=== PATIENT | male | born 1960 | race Caucasian/White ===

== ENCOUNTER 2017-12-19 12:44 | Observation (INO) ==
[2017-12-19] MEDS ORDERED: Naloxone 0.4 MG/ML INJ IVP PRN (17:38)
[2017-12-19] MEDS ORDERED: Ondansetron 4 MG/2 ML VIAL IVP PRN (17:38)
[2017-12-19] MEDS ORDERED: *HR* HYDROcodone/Acet 5/325 mg TABLET PO PRN (17:38)
[2017-12-19] MEDS ORDERED: Acetaminophen 325 MG TABLET PO PRN (17:38)
[2017-12-19] MEDS ORDERED: Nitroglycerin 0.4 MG TAB.SUBL SL PRN (18:08)
--- NOTE | 2017-12-19 18:11 | Internal Med History&Physical ---
Date of Encounter: 12/19/17 Time of Encounter: 18:09 Internal Medicine - H&P: HPI Chief complaint: Chest pain Admitted From: Emergency Dept Plans for Post Hospital Care: Home History of present illness: Mr. Berry is a 56 year old male with a known past medical history of hypertension, hyperlipidemia, ischemic cardiomyopathy with LVEF 35%, CAD with status post cardiac stents to LAD in July 2017, history of smoking smoking patient presented to [facility] this morning complaining about chest pain located at sub sternal as well as epigastric region radiating to bilateral chest wall regions started this morning at 3 AM. He also felt tingling in both hands which improved now. His chest pain more like a sharp type of pain it has 7 out of 10 in severity. He denied of any chest discomfort chest pain now. Patient was transferred to our hospital for further evaluation. He does have significant family history with the CAD, father had HI when he was 49, Mother had HI when she was in 70's Past Med Surg Social Fam HX - Past Medical History Medical history: arthritis, coronary artery disease, hyperlipidemia, myocardial infarction Psychiatric history: no psych history - Past Surgical History Surgical History: no surgical history - Social History Smoking Status: Former smoker Smokeless Tobacco Status: No Alcohol use: none Drug use: none - Family History Father Living Status: Hx Family Cardiac Disorders: Yes (both parents and both grandparents) Hx Family Respiratory Disorders: No Hx Family Cancer: Yes Hx Family GI Disorders: No Hx Family Endocrine Disorder: Yes (mother diabetes) Hx Family Neuromuscular Disorders: No Hx Family Neurologic Disorders: Yes (mother-stroke) Hx Family HEENT Disorders: Yes (mother, father- glaucoma) Hx Family Autoimmune Disorders: No Internal Medicine - H&P: Meds Aspirin 81 mg PO DAILY 08/14/17 [History] Atorvastatin 40 mg PO DAILY 08/14/17 [History] Brilinta 90 mg PO BID 08/14/17 [History] Lisinopril 5 mg PO DAILY 08/14/17 [History] Nitroglycerin 0.4 mg SL PRN PRN 08/14/17 [History] Isosorbide Mononitrate 30 mg PO DAILY 09/14/17 [History] Omeprazole [PriLOSEC] 12/19/17 [History] Ranitidine HCl [Acid Personnel Assistant] 75 mg PO 12/19/17 [History] 3 Allergy/AdvReac Type Severity Reaction Status Date / Time No Known Allergies Allergy Verified 12/19/17 17:14 All Systems PM: A 10-system review of systems was performed and is negative for pertinent findings except as documented above in the HPI. Review of systems: All the systems are reviewed everything is benign except the systems and symptoms I mentioned in the history of present illness - Constitutional Vitals: Temp Pulse Resp BP Pulse Ox 97.6 F 50 17 119/68 94 12/19/17 17:08 12/19/17 17:08 12/19/17 17:08 12/19/17 17:08 12/19/17 17:08 General appearance: Present: cooperative, A&O X 3, no acute distress, answers questions appropriately Exam: see below - Head Head exam: Present: atraumatic, normal inspection - Neck Neck exam general surgery: Present: supple - Respiratory Respiratory exam: Present: decreased breath sounds. Absent: rales, respiratory distress, rhonchi, wheezes - Cardiovascular Cardiovascular exam: Present: RRR, +S1, +S2. Absent: tachycardia - GI/Abdominal GI/Abdominal exam: Present: normal bowel sounds, soft. Absent: rebound, rigid, tenderness - Extremities Exam Extremities exam: Absent: calf tenderness, pedal edema, tenderness - Back Exam Back exam: Absent: CVA tenderness (L), CVA tenderness (R) - Neurological Exam Neurological exam: Present: alert, oriented X3 - Psychiatric Psychiatric exam: Present: normal affect, normal mood - Skin Skin exam: Absent: rash - Assessment and plan (1) Chest pain Current Visit: Yes Status: Acute Assessment and plan: Will admit the pt into [facility] for observation Will place pt on pvc monitor check serial troponin so far negative troponin from [facility] EKG reviewed sinus bradycardia wiht HR54, T wave inversion in shai lateral leads noticed. No ST changes noticed continue patient on aspirin, Brilinta, BB and ACEI and Imdur Will check FLP in AM Will get stress test in AM since pt is high risk for ACS Qualifiers: Chest pain type: unspecified Qualified Code(s): R07.9 - Chest pain, unspecified (2) Ischemic cardiomyopathy Current Visit: Yes Status: Chronic Assessment and plan: Reviewed a 2-D Echo from July 2017 showed LVEF 35 % will do a follow-up echo in the morning (3) CAD (coronary artery disease) Current Visit: Yes Status: Acute Assessment and plan: Had a stent placed to LAD on July 2017 at [facility] resumed all home medications Qualifiers: Coronary Disease-Associated Artery/Lesion type: [place] artery [place] vs. transplanted heart: [place] heart Associated angina: without angina Qualified Code(s): I25.10 - Atherosclerotic heart disease of [place] coronary artery without angina pectoris (4) Hypertension Current Visit: Yes Status: Acute Assessment and plan: Stable with current home medications Qualifiers: Hypertension type: essential hypertension Qualified Code(s): I10 - Essential (primary) hypertension (5) Hyperlipidemia Current Visit: Yes Status: Acute Assessment and plan: Resumed home medications Qualifiers: Hyperlipidemia type: unspecified Qualified Code(s): E78.5 - Hyperlipidemia , unspecified - Time Spent With Patient Total time spent is greater than 50% in coordination of care (as documented) at patient's floor/unit and/or counseling patient:
[2017-12-19] MEDS: *HR* Ticagrelor 90 MG TABLET PO SCH (21:03)
[2017-12-20 00:54] LABS: Basophils % 0.5 %; Eosinophils # 0.1 K/mcL (0.0-0.6); Eosinophils % 1.5 %; Hematocrit 41.2 % (37.5-50.1); Hemoglobin 14.4 g/dL (12.9-16.9); Immature Granulocytes % 0.3 % (0-4); Mean Corpuscular Hemoglobin 32.2 pg (28.0-33.3); Mean Corpuscular Volume 92.2 fL (83.0-100.0); Mean Platelet Volume 10.5 fL (9.4-12.4); Monocytes # 0.7 K/mcL (0.0-1.3); Monocytes % 11.3 %; Neutrophils # 3.2 K/mcL (1.6-8.9); Platelet Count 195 K/mcL (140-400); Red Blood Count 4.47 M/mcL (4.19-5.50); Red Cell Distribution Width 13.8 % (11.5-14.5); Segmented Neutrophils % 53.4 %
[2017-12-20 01:15] LABS: BUN/Creatinine Ratio 19 (6-26); Blood Urea Nitrogen 15 mg/dL (6-20); Calcium 8.6 mg/dL (8.6-10.3); Carbon Dioxide 24 mEq/L (23-29); Chloride 112 mEq/L (98-107); Chol/HDL Ratio 3.2 (0-4.9); Cholesterol 122 mg/dL (< 200); Glucose 123 mg/dL (70-105); HDL Cholesterol 38 mg/dL (40-59); LDL Cholesterol,Calculated 36 mg/dL (0-99); Osmolality,Calculated 298 (280-300); Potassium 3.5 mEq/L (3.5-5.1); Sodium 143 mEq/L (136-145); Triglycerides 239 mg/dL (< 150); eGFR For Non-African Americans > 60 (> 60)
[2017-12-20] MEDS ORDERED: Regadenoson 0.4 MG/5 ML SYRINGE IVP ONE (07:26)
[2017-12-20] MEDS: *HR* Ticagrelor 90 MG TABLET PO SCH (08:54)
[2017-12-20] MEDS ORDERED: Aspirin 81 MG TAB.CHEW PO SCH (09:00)
[2017-12-20] MEDS ORDERED: Isosorbide MONOnitrate (24 HR) 30 MG TAB.ER.24H PO SCH (09:00)
[2017-12-20 11:29] VITALS: BP 117/71
--- NOTE | 2017-12-20 12:30 | Discharge Summary ---
<MaxxLorWarren C - Last Filed: 12/20/17 13:43> - NOTES TO OUTPATIENT PROVIDER Notes to Outpatient Provider: Patient presented for chest pain and was admitted for cardiac workup. Troponin was negative, stress test revealed a large reversible area of nonperfusion representing scar likely from previous MN. LVEF 45%. Cardiology is following and he is scheduled for outpatient follow-up we will hold off on echocardiogram until he sees cardiology outpatient. We will discharge on home medications. Orders not resulted at time of discharge: Pending orders 12/19/17 18:07 NM lisa perf SPECT multi [NM] Routine Date of Encounter: 12/20/17 Time of Encounter: 12:28 - Discharge Diagnosis (1) Chest pain Priority: Primary Status: Acute Assessment and Plan: Patient was admitted on telemetry Serial troponins were negative EKG revealed sinus bradyacrdia (54) with t wave inversion, no ST changes Aspirin, Brilinta, beta roberth, ACEI and Imdur given Stress test showed large area of irreversible non-perfusion likely scar secondary to previous MN, no areas of ischemia noted Cardiology has been following and they already have follow-up scheduled outpatient The plan to came a echocardiogram and to monitor at that time No further intervention is recommended in the hospital at this point Patient is in a stable condition and we will discharge on home medications Qualifiers: Chest pain type: unspecified Qualified Code(s): R07.9 - Chest pain, unspecified (2) CAD (coronary artery disease) Priority: Secondary Status: Acute Assessment and Plan: Had a stent placed to LAD on July 2017 at [facility] resumed all home medications Qualifiers: Coronary Disease-Associated Artery/Lesion type: [place] artery [place] vs. transplanted heart: [place] heart Associated angina: without angina Qualified Code(s): I25.10 - Atherosclerotic heart disease of [place] coronary artery without angina pectoris (3) Hypertension Priority: Secondary Status: Acute Assessment and Plan: Stable for discharge with current home medications Qualifiers: Hypertension type: essential hypertension Qualified Code(s): I10 - Essential (primary) hypertension (4) Hyperlipidemia Priority: Secondary Status: Acute Assessment and Plan: Fasting lipid panel here showed hypertriglyceridemia 239, cholesterol in normal range Resumed home medications Qualifiers: Hyperlipidemia type: unspecified Qualified Code(s): E78.5 - Hyperlipidemia , unspecified (5) Ischemic cardiomyopathy Priority: Secondary Status: Chronic Assessment and Plan: Reviewed a 2-D Echo from July 2017 showed LVEF 35 % LVEF on stress test 45% Cardiology will do repeat echo at follow up Hospital course: Mr. Berry is a 56 year old male with a known past medical history of hypertension, hyperlipidemia, ischemic cardiomyopathy with LVEF 35%, CAD with status post cardiac stents to LAD in July 2017, history of smoking smoking patient presented to [facility] yesterday morning complaining about chest pain located at sub sternal as well as epigastric region radiating to bilateral chest wall regions started yesterday morning at 3 AM. He also felt tingling in both hands which improved. His chest pain more like a sharp type of pain it has 7 out of 10 in severity. He denied of any chest discomfort chest pain at admission. Patient was transferred to our hospital for further evaluation. Troponins trended here were negative, EKG showed bradycardia and T-wave inversion otherwise no ST changes. Stress test showed large area of reversible nonperfusion likely scarring secondary to previous MN, no areas of ischemia found. Patient was asymptomatic after admission with stable labs and vitals. Cardiology following and set up for outpatient follow-up with echocardiogram and Holter monitor, we will discharge on home medications. Discharge discussed with: patient, family - Time Spent with Patient Total time spent providing and/or coordinating discharge services: - Discharge Medications Home Medications: Aspirin [Adult Aspirin] 81 mg PO DAILY 12/20/17 [History] Atorvastatin [Lipitor] 40 mg PO HS 12/20/17 [History] Isosorbide MONOnitrate (24 HR) [Imdur] 30 mg PO DAILY 12/20/17 [History] Lisinopril [Zestril] 5 mg PO DAILY 12/20/17 [History] Nitroglycerin [Nitrostat] 0.4 mg SL Q5M PRN 12/20/17 [History] Omeprazole [PriLOSEC] 20 mg PO DAILY 12/20/17 [History] Ranitidine HCl [Acid Flatwork Finisher Hand] 150 mg PO HS 12/20/17 [History] Ticagrelor [Brilinta] 90 mg PO BID 12/20/17 [History] Allergies/Adverse Reactions: 3 Allergy/AdvReac Type Severity Reaction Status Date / Time No Known Allergies Allergy Verified 12/19/17 17:14 Date of admission: 12/19/17 16:38 Primary care physician: Shawanda Michele Consults: 12/19/17 17:14 Consult to Chronometer Assembler And Adjuster [CONS] Routine Reason for SW Consult: POA paperwork Discharging clinician: Warren Lilly - Constitutional Vitals: Temp Pulse Resp BP Pulse Ox 97.2 F L 50 18 117/71 93 12/20/17 11:26 12/20/17 11:26 12/20/17 11:26 12/20/17 11:26 12/20/17 11:26 General appearance: Present: cooperative, A&O X 3, no acute distress, answers questions appropriately Exam: Patient in no acute distress, alert and oriented 3 Cranial nerves II through XII intact Heart in regular rate and rhythm, no murmur or gallop Lungs clear to auscultation bilaterally Abdomen soft and nontender Legs nonedematous Skin warm and dry - Patient Status Disposition: Home, Self-Care Condition: Good Functional capacity at discharge: independent ambulation Overall status at discharge: patient is back to baseline - Discharge Instructions Instructions: Chest Pain (DC) Follow Up With: Shawanda Michele [Primary Care Provider] - 12/26/17 9:30 am - Diet and Activity Activity: resume usual activities as tolerated Diet: low fat, low cholesterol <Kwaku Benavidez - Last Filed: 12/20/17 16:22> Orders not resulted at time of discharge: Pending orders 12/19/17 18:07 NM lisa perf SPECT multi [NM] Routine Date of Encounter: 12/20/17 - Discharge Diagnosis (1) Chest pain Status: Acute Qualifiers: Chest pain type: unspecified Qualified Code(s): R07.9 - Chest pain, unspecified (2) CAD (coronary artery disease) Status: Acute Qualifiers: Coronary Disease-Associated Artery/Lesion type: [place] artery [place] vs. transplanted heart: [place] heart Associated angina: without angina Qualified Code(s): I25.10 - Atherosclerotic heart disease of [place] coronary artery without angina pectoris (3) Hypertension Status: Acute Qualifiers: Hypertension type: essential hypertension Qualified Code(s): I10 - Essential (primary) hypertension (4) Hyperlipidemia Status: Acute Qualifiers: Hyperlipidemia type: unspecified Qualified Code(s): E78.5 - Hyperlipidemia , unspecified (5) Ischemic cardiomyopathy Status: Chronic Hospital course: Mr. Berry is a 56 year old male - Time Spent with Patient Total time spent providing and/or coordinating discharge services: Date of admission: 12/19/17 16:38 Primary care physician: Shawanda Michele Consults: 12/19/17 17:14 Consult to Chronometer Assembler And Adjuster [CONS] Routine Reason for SW Consult: POA paperwork - Constitutional Vitals: Temp Pulse Resp BP Pulse Ox 97.2 F L 50 18 117/71 93 12/20/17 11:26 12/20/17 11:26 12/20/17 11:26 12/20/17 11:26 12/20/17 11:26 - Attending Attestation I examined this patient and my medical decision-making was reviewed with the Resident Physician Dr. Lilly. I agree with the documented findings, disposition and treatment plan as described except to the extent set forth below. Mr. Berry is a 56 year old male with a known past medical history of hypertension, hyperlipidemia, ischemic cardiomyopathy with LVEF 35%, CAD with status post cardiac stents to LAD in July 2017, history of smoking smoking patient presented to [facility] complaining about chest pain located at sub sternal as well as epigastric region radiating to bilateral chest wall region. He was admitted here and placed him on tele. His serial trop were negative. His stress test came back as negative. Medically stable to d/c home today.
== END 2017-12-20 14:42 | disposition home or self-care (01) ==
LOC: 3BNU
PROVIDERS: ADMIT Internal Medicine; ATTEND Internal Medicine

== ENCOUNTER 2018-09-20 14:19 | Observation (INO) ==
[2018-09-20] MEDS ORDERED: *HR* Morphine 2 MG/ML SYRINGE IVP ONE (14:41)
--- NOTE | 2018-09-20 14:41 | Emergency Department Note ---
Disposition Clinical Impression: ACS (acute coronary syndrome) Disposition: Admitted As Inpatient Condition: Fair Referrals: Melanie Barajas MD [Primary Care Provider] - Forms: ED Satisfaction Letter Time of Disposition: 16:59 General Adult HPI - General Chief complaint: ED Chest Pain Stated complaint: Chest Pain Time Seen by Provider: 09/20/18 14:25 Source: patient - History of Present Illness Pain Scale: 8 - Related Data Home Medications Medication Instructions Recorded Confirmed Aspirin [Adult Aspirin] 81 mg PO DAILY 12/20/17 12/20/17 Atorvastatin [Lipitor] 40 mg PO HS 12/20/17 12/20/17 Isosorbide MONOnitrate (24 HR) 30 mg PO DAILY 12/20/17 12/20/17 [Imdur] Lisinopril [Zestril] 5 mg PO DAILY 12/20/17 12/20/17 Nitroglycerin [Nitrostat] 0.4 mg SL Q5M PRN 12/20/17 12/20/17 Omeprazole [PriLOSEC] 20 mg PO DAILY 12/20/17 12/20/17 Ranitidine HCl [Acid Access Services Representative] 150 mg PO HS 12/20/17 12/20/17 Ticagrelor [Brilinta] 90 mg PO BID 12/20/17 12/20/17 Allergies Allergy/AdvReac Type Severity Reaction Status Date / Time No Known Allergies Allergy Verified 04/08/18 16:21 Past Medical History - Past Medical History Medical history: Reports: arthritis, COPD, coronary artery disease, GERD, hyperlipidemia, myocardial infarction Surgical history: Reports: angioplasty/stent, orthopedic, other Psychiatric history: Reports: no psych history - Social History Smoking Status: Former smoker Smokeless Tobacco Status: No Alcohol use: Reports: none Drug use: Reports: none Physical Exam - General General appearance: alert Course Vital Signs Temperature 98.3 F 09/20/18 14:25 Pulse Rate 59 09/20/18 14:25 Respiratory Rate 28 09/20/18 14:25 Blood Pressure 115/80 09/20/18 14:25 O2 Sat by Pulse Oximetry 96 09/20/18 14:25 Temperature 98.3 F 09/20/18 14:25 Pulse Rate 59 09/20/18 14:25 Respiratory Rate 28 09/20/18 14:25 Blood Pressure 115/80 09/20/18 14:25 O2 Sat by Pulse Oximetry 96 09/20/18 14:25 Oxygen Delivery Oxygen Delivery Room Air Medical Decision Making - Medical Records Medical records reviewed: Yes I reviewed the patient's medical records. - Lab Data Lab results reviewed: Yes I reviewed the patient's lab results. Result diagrams: 09/20/18 14:50 09/20/18 14:50 Lab Results 09/20/18 09/20/18 Range/Units 14:50 14:50 WBC 7.3 (4.3-11.1) K/mcL RBC 4.86 (4.19-5.50) M/mcL Hgb 15.4 (12.9-16.9) g/dL Hct 44.5 (37.5-50.1) % MCV 91.6 (83.0-100.0) fL MCH 31.7 (28.0-33.3) pg MCHC 34.6 (31.6-35.5) g/dL RDW 13.1 (11.5-14.5) % Plt Count 227 (140-400) K/mcL MPV 10.8 (9.4-12.4) fL Immature Gran % 0.3 (0-4) % Seg Neutrophils % 54.8 % Lymphocytes % 33.5 % Monocytes % 10.2 % Eosinophils % 0.7 % Basophils % 0.5 % Neutrophils # 4.0 (1.6-8.9) K/mcL Lymphocytes # 2.4 (0.6-4.6) K/mcL Monocytes # 0.7 (0.0-1.3) K/mcL Eosinophils # 0.1 (0.0-0.6) K/mcL Basophils # 0.0 (0.0-0.2) K/mcL Sodium 140 (136-145) mEq/L Potassium 3.8 (3.5-5.1) mEq/L Chloride 111 H (98-107) mEq/L Carbon Dioxide 19 L (23-29) mEq/L BUN 14 (6-20) mg/dL Creatinine 0.76 (0.70-1.30) mg/dL Est GFR ( Amer) > 60 (> 60) Est GFR (Non-Af Amer) > 60 (> 60) BUN/Creatinine Ratio 18 (6-26) Glucose 93 (70-105) mg/dL Calculated Osmolality 290 (280-300) Calcium 9.2 (8.6-10.3) mg/dL Troponin I < 0.03 (< 0.04) ng/mL - Radiology Data Radiology results reviewed: Yes I reviewed the patient's radiology results. Attestation Statement - Attestation Attestation: I saw and evaluated the patient and and reviewed the resident's note/PA note/BOGGER OPERATOR note, and I agree with the findings and plan. I personally supervised and was present for the king/critical portions of any procedures. The medical decision- making was reviewed with the HEAD ANIMAL KEEPER/PA/Advanced Practice Nurse/Resident Physician. I agree with the documented findings, disposition and treatment plan as described except to the extent set forth below. I did see the patient immediately upon arrival and also spoke with the cardiolo gy nurse practitioner who brought the patient over to me and I did review the patient's EKG from cardiology as well as our EKG from here and they are essentially unchanged. Our EKG here shows sinus bradycardia with a rate of [address] elevation anteriorly which appears almost identical to the EKG which was done at 2:03 PM today at cardiology. Also according to Dr. Causey there is no change from the beginning to the end of the stress test. The patient states his pain feels similar to when he had his heart attack in July 2017. Labs including troponin testing are ordered, chest x-ray. Patient will be watched closely and we will coordinate care with cardiology. 1441 I did go back and check on the patient. Pain is improved and is now 5/10. X- ray does not show acute abnormality. Troponin test is pending. 1519 Initial troponin is negative. Additional testing is necessary due to short duration of the patient's pain. He is pain-free now. Is admitted to the [facility]. This was discussed with cardiology. The hospitalist has accepted the patient for admission 1700
--- NOTE | 2018-09-20 14:46 | Emergency Department Note ---
Disposition Clinical Impression: ACS (acute coronary syndrome) Chest pain Qualifiers: Chest pain type: unspecified Qualified Code(s): R07.9 - Chest pain, unspecified Disposition: Admitted As Inpatient Condition: Fair Instructions: Chest Pain (ED) Referrals: Melanie Barajas MD [Primary Care Provider] - Forms: ED Satisfaction Letter Time of Disposition: 16:30 General Adult HPI - General Chief complaint: ED Chest Pain Stated complaint: Chest Pain Time Seen by Provider: 09/20/18 14:25 Source: patient - History of Present Illness HPI Narrative: Mr. Lucio is a 57-year-old male with past medical history of previous OK with 1 stent in 2018 on aspirin and Plavix who was presented to the ED after chest pain during elective exercise stress test. He received 2 sublingual nitroglycerin without any remedy of his chest pain. He had an EKG today upon presentation in EKG looks unchanged from previous EKG. He reports that the c hest pain seems similar to his previous chest pain he had when he had an OK. It is described as stabbing pain around his bilateral rib cage does not radiate to his back. The pain is not reproducible in severity described as 7/10. He reports that usually he works out daily on the treadmill and walks at a fast paced for about 15 minutes and also uses stationary bike and never has had chest pain like this since his OK. He denies any fever, chills, nausea, emesis, shortness of breath, abdominal pain, chest wall tenderness. Pain Scale: 8 - Related Data Home Medications Medication Instructions Recorded Confirmed Aspirin [Adult Aspirin] 81 mg PO DAILY 12/20/17 09/20/18 Atorvastatin [Lipitor] 40 mg PO HS 12/20/17 09/20/18 Isosorbide MONOnitrate (24 HR) 15 mg PO DAILY 12/20/17 09/20/18 [Imdur] Lisinopril [Zestril] 2.5 mg PO DAILY 12/20/17 09/20/18 Nitroglycerin [Nitrostat] 0.4 mg SL Q5M PRN 12/20/17 09/20/18 Ticagrelor [Brilinta] 90 mg PO BID 12/20/17 09/20/18 Allergies Allergy/AdvReac Type Severity Reaction Status Date / Time No Known Allergies Allergy Verified 04/08/18 16:21 Constitutional: Denies: fever, weakness Eyes: Denies: eye pain, vision change ENT ED: Denies: ear pain, congestion, dysphagia Cardiovascular: Reports: chest pain. Denies: palpitations, dyspnea on exertion, orthopnea, edema, syncope Respiratory: Denies: cough, dyspnea, wheezes Gastrointestinal: Denies: abdominal pain, nausea, vomiting Musculoskeletal: Denies: back pain Integumentary: Denies: rash, abrasion, lesions Neurological: Denies: headache, weakness, numbness, paresthesias Past Medical History - Past Medical History Medical history: Reports: arthritis, COPD, coronary artery disease, GERD, hype rlipidemia, myocardial infarction Surgical history: Reports: angioplasty/stent, orthopedic, other Psychiatric history: Reports: no psych history - Social History Smoking Status: Former smoker Smokeless Tobacco Status: No Alcohol use: Reports: none Drug use: Reports: none Physical Exam At presentation appeared very uncomfortable is complaining of severe pain around his bilateral lower chest. He received 4 mg of IV morphine soon after he was resting comfortably in bed and was taking a nap and reported his pain had resolved. - General General appearance: alert - Head Head exam: atraumatic, normocephalic - Eye Eye exam: Present: normal appearance, EOMI. Absent: scleral icterus, conjun ctival injection - ENT ENT exam: normal exam, normal oropharynx, mucous membranes moist - Neck Neck exam: Present: normal inspection, full ROM, trachea midline - Chest Chest inspection: Present: normal inspection. Absent: symmetric chest wall rise, tenderness - Respiratory Respiratory exam: Present: normal lung sounds bilaterally. Absent: respiratory distress, wheezes, accessory muscle use - Cardiovascular Cardiovascular exam: Present: regular rate, normal rhythm, +S1, +S2 - Abdominal Exam Abdominal exam: Present: soft, Non-Tender, normal bowel sounds. Absent: distention, guarding - Extremities Exam Extremities exam: Present: normal inspection. Absent: tenderness, pedal edema - Back Exam Back exam: Present: normal inspection. Absent: tenderness - Neurological Exam Neurological exam: Present: alert, oriented X3 - Psychiatric Psychiatric exam: Present: normal mood, agitated - Skin Skin exam: Present: warm, dry, intact Course - Reevaluation(s) Reevaluation #1: Reexamined Mr. Lucio. He was resting in bed comfortably and taking a nap. He reports his chest pain has completely resolved at this time. Time: 15:41 Reevaluation #2: Spoke with the admitting hospitalist and patient will be admitted to hospital. Additionally spoke with cardiology and they said they will monitor the patient during his stay in the hospital and make any further recommendations. Time: 16:00 Vital Signs Temperature 98.3 F 09/20/18 14:25 Pulse Rate 59 09/20/18 14:25 Respiratory Rate 28 09/20/18 14:25 Blood Pressure 115/80 09/20/18 14:25 O2 Sat by Pulse Oximetry 96 09/20/18 14:25 Temperature 98.3 F 09/20/18 14:25 Pulse Rate 67 09/20/18 17:19 Respiratory Rate 16 09/20/18 17:19 Blood Pressure 124/71 09/20/18 17:19 O2 Sat by Pulse Oximetry 94 09/20/18 17:19 Oxygen Delivery Oxygen Delivery Room Air Medical Decision Making - Lab Data Result diagrams: 09/20/18 14:50 09/20/18 14:50 Lab Results 09/20/18 09/20/18 Range/Units 14:50 14:50 WBC 7.3 (4.3-11.1) K/mcL RBC 4.86 (4.19-5.50) M/mcL Hgb 15.4 (12.9-16.9) g/dL Hct 44.5 (37.5-50.1) % MCV 91.6 (83.0-100.0) fL MCH 31.7 (28.0-33.3) pg MCHC 34.6 (31.6-35.5) g/dL RDW 13.1 (11.5-14.5) % Plt Count 227 (140-400) K/mcL MPV 10.8 (9.4-12.4) fL Immature Gran % 0.3 (0-4) % Seg Neutrophils % 54.8 % Lymphocytes % 33.5 % Monocytes % 10.2 % Eosinophils % 0.7 % Basophils % 0.5 % Neutrophils # 4.0 (1.6-8.9) K/mcL Lymphocytes # 2.4 (0.6-4.6) K/mcL Monocytes # 0.7 (0.0-1.3) K/mcL Eosinophils # 0.1 (0.0-0.6) K/mcL Basophils # 0.0 (0.0-0.2) K/mcL Sodium 140 (136-145) mEq/L Potassium 3.8 (3.5-5.1) mEq/L Chloride 111 H (98-107) mEq/L Carbon Dioxide 19 L (23-29) mEq/L BUN 14 (6-20) mg/dL Creatinine 0.76 (0.70-1.30) mg/dL Est GFR ( Amer) > 60 (> 60) Est GFR (Non-Af Amer) > 60 (> 60) BUN/Creatinine Ratio 18 (6-26) Glucose 93 (70-105) mg/dL Calculated Osmolality 290 (280-300) Calcium 9.2 (8.6-10.3) mg/dL Troponin I < 0.03 (< 0.04) ng/mL
[2018-09-20 15:22] LABS: Basophils % 0.5 %; Eosinophils # 0.1 K/mcL (0.0-0.6); Eosinophils % 0.7 %; Hematocrit 44.5 % (37.5-50.1); Hemoglobin 15.4 g/dL (12.9-16.9); Immature Granulocytes % 0.3 % (0-4); Lymphocytes # 2.4 K/mcL (0.6-4.6); Lymphocytes % 33.5 %; Mean Corpuscular HGB Conc 34.6 g/dL (31.6-35.5); Mean Corpuscular Hemoglobin 31.7 pg (28.0-33.3); Mean Corpuscular Volume 91.6 fL (83.0-100.0); Mean Platelet Volume 10.8 fL (9.4-12.4); Monocytes # 0.7 K/mcL (0.0-1.3); Monocytes % 10.2 %; Platelet Count 227 K/mcL (140-400); Red Blood Count 4.86 M/mcL (4.19-5.50); Red Cell Distribution Width 13.1 % (11.5-14.5); Segmented Neutrophils % 54.8 %; White Blood Count 7.3 K/mcL (4.3-11.1)
[2018-09-20 15:47] LABS: BUN/Creatinine Ratio 18 (6-26); Blood Urea Nitrogen 14 mg/dL (6-20); Calcium 9.2 mg/dL (8.6-10.3); Carbon Dioxide 19 mEq/L (23-29); Chloride 111 mEq/L (98-107); Glucose 93 mg/dL (70-105); Osmolality,Calculated 290 (280-300); Potassium 3.8 mEq/L (3.5-5.1); Sodium 140 mEq/L (136-145); Troponin I < 0.03 ng/mL (< 0.04); eGFR For African Americans > 60 (> 60); eGFR For Non-African Americans > 60 (> 60)
[2018-09-20] MEDS ORDERED: Naloxone 0.4 MG/ML INJ IVP PRN (17:08)
[2018-09-20] MEDS ORDERED: Nitroglycerin 0.4 MG TAB.SUBL SL PRN (17:16)
--- NOTE | 2018-09-20 17:24 | Internal Med History&Physical ---
Date of Encounter: 09/20/18 Time of Encounter: 17:18 Internal Medicine - H&P: HPI Chief complaint: chest pain Admitted From: Home Plans for Post Hospital Care: Home History of present illness: Mr. Berry is a 57 year old male with history of CAD s/p stent in july 2017 on DAPT presented to [facility] Ed with chest pain. as per patient he had stress test ( elective) scheduled as OP and he was in [facility] middle of stress test and he developed a sudden onset of pressure like, left sided chest pain that did not radiate. he rated the pain a 7/10. he reports that he did not take any of his medications today as he was told not to take them. he continues to be on DAPT even though his last stent was in july of 2017. he follows with Dr. Hastings as Op and reports that his lisinopril and IMDUR dose was cute in half. he denies SOB or palpitations. he does report that the chest pain alleviated with nTG and morphine. no further episode of chest pain while in the Ed. he denies fever, chills, N/v/D. He reports that the chest pain seems similar to his previous chest pain he had when he had an TX. has had no chest pain on exertion before ( walks on [place];; and uses a stationary bike). In [facility] Ed initia troponin was negative, cardiology was consuletd and he was endorsed for admission for further evaluation of his chest pain. Past Med Surg Social Fam HX - Past Medical History Medical history: arthritis, COPD, coronary artery disease, GERD, hyperlipidemia, myocardial infarction Psychiatric history: no psych history - Past Surgical History Surgical History: angioplasty/stent, orthopedic, other Additional surgical history: cardiac stent - Social History Smoking Status: Former smoker Smokeless Tobacco Status: No Alcohol use: none Drug use: none - Family History Father Living Status: Hx Family Cardiac Disorders: Yes (both parents and both grandparents) Hx Family Respiratory Disorders: No Hx Family Cancer: Yes Hx Family GI Disorders: No Hx Family Endocrine Disorder: Yes (mother diabetes) Hx Family Neuromuscular Disorders: No Hx Family Neurologic Disorders: Yes (mother-stroke) Hx Family HEENT Disorders: Yes (mother, father- glaucoma) Hx Family Autoimmune Disorders: No Internal Medicine - H&P: Meds Aspirin [Adult Aspirin] 81 mg PO DAILY 12/20/17 [History] Atorvastatin [Lipitor] 40 mg PO HS 12/20/17 [History] Isosorbide MONOnitrate (24 HR) [Imdur] 30 mg PO DAILY 12/20/17 [History] Lisinopril [Zestril] 5 mg PO DAILY 12/20/17 [History] Nitroglycerin [Nitrostat] 0.4 mg SL Q5M PRN 12/20/17 [History] Ticagrelor [Brilinta] 90 mg PO BID 12/20/17 [History] Allergy/AdvReac Type Severity Reaction Status Date / Time No Known Allergies Allergy Verified 04/08/18 16:21 All Systems PM: A 10-system review of systems was performed and is negative for pertinent findings except as documented above in the HPI. - Constitutional Vitals: Temp Pulse Resp BP Pulse Ox 98.3 F 59 28 115/80 96 09/20/18 14:25 09/20/18 14:25 09/20/18 14:25 09/20/18 14:25 09/20/18 14:25 Exam: General: Patient is alert, oriented, no acute distress, overweight Head: atraumatic, normocephalic, Eye: normal appearance, PERRL, no scleral icterus, no conjunctival injection ENT: mucous membranes moist, normal external ear exam Neck: normal inspection, trachea midline, full ROM, no carotid bruits Chest: normal inspection, symmetric chest rise Respiratory: Good respiratory effort. Bilateral breath sounds are clear without wheezing, crackles, or rhonchi. Cardiovascular: Regular rate and rhythm. s1 and s2 No clicks, rubs, gallops, or murmors. Abdomen: Bowel sounds present normoactive x-4 quadrants. Abdomen is soft, nondistended. no Epigastric tenderness. No guarding or rebound. No organomegaly noted musculoskeletal: Spontaneously moving all extremities. no edema, no calf tend erness Skin: warm, dry, intact. Neuro: Alert and oriented x3 no focal deficit Psych: Patient's affect is normal Internal Med - H&P Results - Labs CBC & Chem 7: 09/20/18 14:50 09/20/18 14:50 Labs: Short CBC 09/20/18 Range/Units 14:50 WBC 7.3 (4.3-11.1) K/mcL Hgb 15.4 (12.9-16.9) g/dL Hct 44.5 (37.5-50.1) % Plt Count 227 (140-400) K/mcL Neutrophils # 4.0 (1.6-8.9) K/mcL BMP 09/20/18 14:50 Sodium 140 Potassium 3.8 Chloride 111 H Carbon Dioxide 19 L BUN 14 Creatinine 0.76 Glucose 93 Calcium 9.2 Cardiac Enzymes 09/20/18 Range/Units 14:50 Troponin I < 0.03 (< 0.04) ng/mL - EKG Data -: EKG Interpreted by Myself (NSR, anterosetal infarct ) - EKG Data Prior EKG available for review: yes When compared to previous EKG: there is no significant change - Impressions ITS Impressions Chest X-Ray 09/20/18 14:27 IMPRESSION: No acute cardiopulmonary disease. COPD. D/ / Ernestina Mares MD / Ernestina Mares MD Interpreting Provider: Ernestina Mares MD - Assessment and Plan (1) Chest pain Current Visit: No Status: Acute Assessment and plan: Chest pain during exercise stress test telemetry Follow serial troponin/CK-MB/EKG Transthoracic echocardiograph to identify regional wall motion abnormalities and assess LV function Continue home aspirin and brillinta, ACEI, IMDUR and statins Not on bb NPO for possible Cath in AM Cardiology consulted Nitro Q5M PRN lipid panel in AM Qualifiers: Chest pain type: unspecified Qualified Code(s): R07.9 - Chest pain, unspecified (2) CAD (coronary artery disease) Current Visit: No Status: Acute Assessment and plan: CAD s/p Stent in 2018 at [facility] continue DAPT, ACEI< IMDUR and statins rest of the management as above. nuclear stress test in 2018- Perfusion study is negative for ischemia. Severe large size irreversible perfusion defect in apex, mid anterior and mid anteroseptal segments represent a large scar. Stress LVEF 45 %. No ischemic stress ECG findings. Mild chest pain during stress test. No abnormal hemodynamic changes during stress test. TTE 02/2018- Impressions: LVEF 50%. Definity echo contrast was used. Mild LV segmental wall motion abnormality. Qualifiers: Coronary Disease-Associated Artery/Lesion type: [place] artery [place] vs. transplanted heart: [place] heart Associated angina: without angina Qualified Code(s): I25.10 - Atherosclerotic heart disease of [place] coronary artery without angina pectoris (3) COPD (chronic obstructive pulmonary disease) Current Visit: Yes Status: Acute Assessment and plan: not in acute exacerbation PFTS with mild airway obstructive pattern Qualifiers: COPD type: unspecified COPD Qualified Code(s): J44.9 - Chronic obstructive pulmonary disease, unspecified (4) DVT prophylaxis Current Visit: Yes Status: Acute Assessment and plan: heparin sc - Time Spent With Patient Total time spent is greater than 50% in coordination of care (as documented) at patient's floor/unit and/or counseling patient:
[2018-09-20] MEDS: Aspirin Enteric Coated 81 MG Tablet PO SCH (20:17)
[2018-09-20] MEDS: *HR* Ticagrelor 90 MG TABLET PO SCH (20:18)
[2018-09-20] MEDS: *HR* Heparin 5,000 UNIT/ML VIAL SQ SCH (20:18)
[2018-09-20] MEDS ORDERED: Perflutren Lipid Microsphere 1.3 ML in 0.9 % Sodium Chloride 8.7 ML IVP ONE (20:57)
[2018-09-20] MEDS ORDERED: Famotidine 20 MG TABLET PO SCH (21:00)
[2018-09-21 04:54] LABS: Basophils # 0.1 K/mcL (0.0-0.2); Basophils % 0.9 %; Eosinophils # 0.1 K/mcL (0.0-0.6); Eosinophils % 1.6 %; Hemoglobin 15.5 g/dL (12.9-16.9); Immature Granulocytes % 0.4 % (0-4); Lymphocytes # 2.1 K/mcL (0.6-4.6); Lymphocytes % 37.8 %; Mean Corpuscular HGB Conc 34.4 g/dL (31.6-35.5); Mean Corpuscular Hemoglobin 32.2 pg (28.0-33.3); Mean Corpuscular Volume 93.6 fL (83.0-100.0); Mean Platelet Volume 10.8 fL (9.4-12.4); Monocytes # 0.6 K/mcL (0.0-1.3); Monocytes % 11.2 %; Neutrophils # 2.7 K/mcL (1.6-8.9); Platelet Count 214 K/mcL (140-400); Red Blood Count 4.81 M/mcL (4.19-5.50); Red Cell Distribution Width 13.2 % (11.5-14.5); Segmented Neutrophils % 48.1 %; White Blood Count 5.5 K/mcL (4.3-11.1)
[2018-09-21 05:15] LABS: BUN/Creatinine Ratio 21 (6-26); Blood Urea Nitrogen 18 mg/dL (6-20); Carbon Dioxide 20 mEq/L (23-29); Chloride 111 mEq/L (98-107); Chol/HDL Ratio 2.9 (0-4.9); Cholesterol 126 mg/dL (< 200); Glucose 88 mg/dL (70-105); HDL Cholesterol 44 mg/dL (40-59); LDL Cholesterol,Calculated 56 mg/dL (0-99); Magnesium 1.9 mg/dL (1.6-2.6); Osmolality,Calculated 289 (280-300); Phosphorous 3.2 mg/dL (2.7-4.5); Potassium 4.2 mEq/L (3.5-5.1); Sodium 139 mEq/L (136-145); Triglycerides 131 mg/dL (< 150); Troponin I < 0.03 ng/mL (< 0.04); eGFR For African Americans > 60 (> 60); eGFR For Non-African Americans > 60 (> 60)
[2018-09-21] MEDS: *HR* Heparin 5,000 UNIT/ML VIAL SQ SCH (06:16)
[2018-09-21] MEDS ORDERED: Isosorbide MONOnitrate (24 HR) 30 MG TAB.ER.24H PO SCH (09:00)
--- NOTE | 2018-09-21 09:43 | Electrocardiograph Report ---
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
[2018-09-21] MEDS: Aspirin Enteric Coated 81 MG Tablet PO SCH (11:18)
[2018-09-21] MEDS: *HR* Ticagrelor 90 MG TABLET PO SCH (11:18)
[2018-09-21 11:20] VITALS: BP 115/72
--- NOTE | 2018-09-21 12:17 | Cardiology Consult Note ---
<Ayesha Millan Irvin - Last Filed: 09/21/18 12:12> Date of Encounter: 09/21/18 Time of Encounter: 11:00 Assessment and Plan (1) Chest pain Current Visit: Yes Status: Acute Presented with chest pain during exercise stress test. ECG is abnormal; however unchanged from previous. Troponin negative x3. Denies recurrent chest pain since admission. TTE shows LVEF 45-50% with mild segmental LV systolic dysfunction, mild LVDD, no significant valvular dysfunction---unchanged from previous. Continue current CV medications including asa, statin, brilinta, and nitrates. No BB d/t bradycardia, HR 50's. Recommend close outpatient follow-up with Dr. Hastings. Anticipate sign-off once seen by Dr. Lenz. Qualifiers: Chest pain type: precordial pain Qualified Code(s): R07.2 - Precordial pain (2) Ischemic cardiomyopathy Current Visit: No Status: Chronic As above. Continue home medications. Unfortunately, he has not been able to tolerate BB d/t bradycardia. EF stable, 45-50%, continue nitrates and ACEi. Discussion w patient/family: The assessment and plan as outlined above was discussed with the patient and/or family members who expressed understanding and agreement. All questions were answered. Thank you for involving us in the care of your patient. Please call with any questions. The patient will be discussed and reviewed with Dr. Hillman, changes to be made accordingly. History of Present Illness Consult date: 09/21/18 Requesting physician: Melody Enriquez Consult reason: Chest pain Chief complaint: chest pain History of present illness: Mr. Berry is a 57 year old male with PMHx significant of ICMP with recovered LVEF, CAD s/p PCI to LAD at [facility] 07/2017, GERD, and HLD who presented to the ED from the stress lab due to chest pain on the treadmill. Stress test ordered to evaluate for chronotropic incomptence--HR response noted to be normal. He was given SL NTG in the stress lab, continued to have symptoms and was therefore recommended to undergo evaluation at the ED. HE denies chest pain or discomfort prior to stress test yesterday, notes that he is very active at home, walks at least 2 miles per day without issues (no incline). Troponin negative x3; ECG is abnormal, but unchanged from previous. Past Med Surg Social Fam HX - Past Medical History Attestation: Yes The following information was validated with the patient. Source: patient Medical history: arthritis, COPD, coronary artery disease, GERD, hyperlipidemia, myocardial infarction Psychiatric history: no psych history - Past Surgical History Surgical History: angioplasty/stent, orthopedic, other Additional surgical history: cardiac stent - Social History Smoking Status: Former smoker Smokeless Tobacco Status: No Alcohol use: none Drug use: none - Family History Father Living Status: Hx Family Cardiac Disorders: Yes Hx Family Respiratory Disorders: No Hx Family Cancer: Yes Hx Family GI Disorders: No Hx Family Endocrine Disorder: Yes (mother diabetes) Hx Family Neuromuscular Disorders: No Hx Family Neurologic Disorders: Yes Hx Family HEENT Disorders: Yes (mother, father- glaucoma) Hx Family Autoimmune Disorders: No Mother Hx Family Cardiac Disorders: Yes Hx Family Neurologic Disorders: Yes Medications and Allergies Aspirin [Adult Aspirin] 81 mg PO DAILY 12/20/17 [History] Atorvastatin [Lipitor] 40 mg PO HS 12/20/17 [History] Isosorbide MONOnitrate (24 HR) [Imdur] 15 mg PO DAILY 12/20/17 [History] Lisinopril [Zestril] 2.5 mg PO DAILY 12/20/17 [History] Nitroglycerin [Nitrostat] 0.4 mg SL Q5M PRN 12/20/17 [History] Ticagrelor [Brilinta] 90 mg PO BID 12/20/17 [History] Omeprazole 20 mg PO DAILY #30 tablet. 09/21/18 [Rx] Allergy/AdvReac Type Severity Reaction Status Date / Time No Known Allergies Allergy Verified 04/08/18 16:21 All Systems Review: The remainder of the systems were reviewed and are negative - Cardiovascular Cardiovascular: as per HPI Physical Examination Vital Signs, Last 4 Hours Temp Pulse Resp BP Pulse Ox 09/21/18 11:17 97.8 F 49 16 115/72 93 General: Conversant, No Apparent Distress HEENT: Atraumatic, Normocephaly, Mucus Membranes Moist Neck: No JVD, Normal carotid pulses Cardiac: Reg Rate and Rhythm, Normal S1 and S2, No Murmur Lungs: Normal Breath Sounds, No Wheeze, Rales, Rhonchi Neuro: Alert and responsive, No focal deficits noted Abdomen: Soft, Non-Tender Skin: No rashes noted on visualized skin Musculoskeletal: No Chest Wall Tenderness Extremities: No Clubbing, No Cyanosis, No Edema, Normal Pulses Results 09/21/18 04:08 09/21/18 04:08 Lab Results 09/20/18 09/20/18 09/20/18 14:50 14:50 22:09 WBC 7.3 Hgb 15.4 Hct 44.5 Plt Count 227 Sodium 140 Potassium 3.8 Chloride 111 H Carbon Dioxide 19 L BUN 14 Creatinine 0.76 Glucose 93 Calcium 9.2 Magnesium Troponin I < 0.03 < 0.03 09/21/18 09/21/18 04:08 04:08 WBC 5.5 Hgb 15.5 Hct 45.0 Plt Count 214 Sodium 139 Potassium 4.2 Chloride 111 H Carbon Dioxide 20 L BUN 18 Creatinine 0.85 Glucose 88 Calcium 9.0 Magnesium 1.9 Troponin I < 0.03 Active Medications Aspirin (Aspirin Ec) 81 mg PO DAILY [facility] Stop: 03/22/19 17:31 Last Admin: 09/21/18 11:18 Dose: 81 mg Documented by: Atorvastatin Calcium (Lipitor) 40 mg PO HS [facility] Stop: 03/22/19 21:01 Last Admin: 09/20/18 20:18 Dose: 40 mg Documented by: Famotidine (Pepcid) 20 mg PO HS [facility] Stop: 03/22/19 21:01 Last Admin: 09/20/18 20:18 Dose: 20 mg Documented by: Heparin Sodium (Porcine) (Heparin) 5,000 unit SQ Q8HCO [facility] Stop: 03/22/19 22:01 Last Admin: 09/21/18 06:16 Dose: 5,000 unit Documented by: Isosorbide Mononitrate (Imdur) 30 mg PO DAILY [facility] Stop: 03/23/19 09:01 Last Admin: 09/21/18 11:18 Dose: 30 mg Documented by: Lisinopril (Zestril) 2.5 mg PO DAILY [facility]; Protocol Stop: 03/23/19 09:01 Last Admin: 09/21/18 11:18 Dose: 2.5 mg Documented by: Naloxone HCl (Narcan) 0.4 mg IVP Q2MPRN PRN PRN Reason: SEE COMMENTS Stop: 03/22/19 17:09 Nitroglycerin (Nitroglycerin) 0.4 mg SL Q5MPRN PRN PRN Reason: Chest Pain Stop: 03/22/19 17:17 Omeprazole (Prilosec) 20 mg PO DAILY [facility]; Protocol Stop: 03/23/19 09:01 Last Admin: 09/21/18 11:18 Dose: 20 mg Documented by: Ticagrelor (Brilinta) 90 mg PO BID [facility] Stop: 03/22/19 21:01 Last Admin: 09/21/18 11:18 Dose: 90 mg Documented by: - Imaging and Cardiology Echo: report reviewed Cardiac cath: report reviewed - EKG Interpretation EKG results cardiology: personally reviewed Consult Discharge Plan - Plan Referrals: Melanie Barajas MD [Primary Care Provider] - Prescriptions: Omeprazole 20 mg PO DAILY #30 tablet. <Riley Hillman - Last Filed: 09/21/18 14:18> Date of Encounter: 09/21/18 - Attending Attestation I have personally performed a face to face evaluation on this patient. I have reviewed and agree with the documented findings and care plan as documented by the POSTPARTUM NURSE. History and Exam by me shows: Patient with known LAD infarct, on previous cardiac catheterization. No dynamic changes on EKG. Preserved ejection fraction with no new segmental wall motion abnormality on echocardiogram. Continue medical management and follow-up with landfill attendant as outpatient Riley Luu MD [facility] Assessment and Plan Discussion w patient/family: The assessment and plan as outlined above was discussed with the patient and/or family members who expressed understanding and agreement. All questions were answered. Thank you for involving us in the care of your patient. Please call with any questions. History of Present Illness History of present illness: Mr. Berry is a 57 year old male All Systems Review: The remainder of the systems were reviewed and are negative Physical Examination Vital Signs, Last 4 Hours Temp Pulse Resp BP Pulse Ox 09/21/18 11:17 97.8 F 49 16 115/72 93 Results 09/21/18 04:08 09/21/18 04:08 Lab Results 09/20/18 09/20/18 09/20/18 14:50 14:50 22:09 WBC 7.3 Hgb 15.4 Hct 44.5 Plt Count 227 Sodium 140 Potassium 3.8 Chloride 111 H Carbon Dioxide 19 L BUN 14 Creatinine 0.76 Glucose 93 Calcium 9.2 Magnesium Troponin I < 0.03 < 0.03 09/21/18 09/21/18 04:08 04:08 WBC 5.5 Hgb 15.5 Hct 45.0 Plt Count 214 Sodium 139 Potassium 4.2 Chloride 111 H Carbon Dioxide 20 L BUN 18 Creatinine 0.85 Glucose 88 Calcium 9.0 Magnesium 1.9 Troponin I < 0.03
--- NOTE | 2018-09-21 13:22 | Discharge Summary ---
- NOTES TO OUTPATIENT PROVIDER Notes to Outpatient Provider: Recommend close outpatient follow-up with Dr. Hastings. Orders not resulted at time of discharge: Pending orders 09/20/18 20:50 EKG [ECG 12 lead ECG] [ECG] Q6H Date of Encounter: 09/21/18 Time of Encounter: 13:20 - Discharge Diagnosis (1) Chest pain Priority: Primary Status: Acute Qualifiers: Chest pain type: precordial pain Qualified Code(s): R07.2 - Precordial pain (2) CAD (coronary artery disease) Priority: Secondary Status: Acute Qualifiers: Coronary Disease-Associated Artery/Lesion type: [place] artery [place] vs. transplanted heart: [place] heart Associated angina: without angina Qualified Code(s): I25.10 - Atherosclerotic heart disease of [place] coronary artery wi thout angina pectoris (3) COPD (chronic obstructive pulmonary disease) Priority: Secondary Status: Acute Qualifiers: COPD type: unspecified COPD Qualified Code(s): J44.9 - Chronic obstructive pulmonary disease, unspecified (4) DVT prophylaxis Priority: Secondary Status: Acute Hospital course: Mr. Berry is a 57 year old male with history of CAD s/p stent in july 2017 on DAPT presented to [facility] Ed with chest pain. as per patient he had stress test ( elective) scheduled as OP and he was in [facility] middle of stress test and he developed a sudden onset of pressure like, left sided chest pain that did not radiate. he rated the pain a 7/10. he reports that he did not take any of his medications today as he was told not to take them. he continues to be on DAPT even though his last stent was in july of 2017. he follows with Dr. Hastings as Op and reports that his lisinopril and IMDUR dose was cute in half. he denies SOB or palpitations. he does report that the chest pain alleviated with nTG and morphine. no further episode of chest pain while in the Ed. he denies fever, chills, N/v/D. He reports that the chest pain seems similar to his previous chest pain he had when he had an FL. has had no chest pain on exertion before ( walks on treadmill and uses a stationary bike). In the ED initial troponin was negative, cardiology was consulted and he was endorsed for admission for further evaluation of his chest pain. tropnins were followed and negative x 3. cardiology was consulted and recommended to continue home medications, No BB d/t bradycardia, HR 50's. and for him to have close follow up with Dr. Hastings. to follow up with pumonology as OP. TTE: LVEF 45-50%. Mild segmental left ventricular systolic dysfunction. Moderate concentric left ventricular hypertrophy. Mild left ventricular diastolic dysfunction. Normal right ventricular structure and function. No significant valvular dysfunction. Unable to estimate RVSP due to lack of TR jet. cxr:IMPRESSION: No acute cardiopulmonary disease. COPD. Discharge discussed with: patient, family, eyewear consultant - Time Spent with Patient Total time spent providing and/or coordinating discharge services: Time spent: Less than 30 minutes - Discharge Medications Prescriptions: New Omeprazole 20 mg PO DAILY #30 tablet.dr Maynard Isosorbide MONOnitrate (24 HR) [Imdur] 15 mg PO DAILY Lisinopril [Zestril] 2.5 mg PO DAILY Atorvastatin [Lipitor] 40 mg PO HS Aspirin [Adult Aspirin] 81 mg PO DAILY Ticagrelor [Brilinta] 90 mg PO BID Nitroglycerin [Nitrostat] 0.4 mg SL Q5M PRN PRN Reason: Chest Pain Home Medications: Aspirin [Adult Aspirin] 81 mg PO DAILY 12/20/17 [History] Atorvastatin [Lipitor] 40 mg PO HS 12/20/17 [History] Isosorbide MONOnitrate (24 HR) [Imdur] 15 mg PO DAILY 12/20/17 [History] Lisinopril [Zestril] 2.5 mg PO DAILY 12/20/17 [History] Nitroglycerin [Nitrostat] 0.4 mg SL Q5M PRN 12/20/17 [History] Ticagrelor [Brilinta] 90 mg PO BID 12/20/17 [History] Omeprazole 20 mg PO DAILY #30 tablet. 09/21/18 [Rx] Allergies/Adverse Reactions: Allergy/AdvReac Type Severity Reaction Status Date / Time No Known Allergies Allergy Verified 04/08/18 16:21 Date of admission: 09/20/18 18:06 Primary care physician: Melanie Barajas MD Consults: 09/20/18 16:37 Consult to Cardiology [CONS] Stat Comment: Consulting Provider: [facility] Reason for Consult: chest pain, history of FL Call Completed: Yes - Constitutional Vitals: Temp Pulse Resp BP Pulse Ox 97.8 F 49 16 115/72 93 09/21/18 11:17 09/21/18 11:17 09/21/18 11:17 09/21/18 11:17 09/21/18 11:17 Exam: General: Patient is alert, oriented, no acute distress, overweight Head: atraumatic, normocephalic, Eye: normal appearance, PERRL, no scleral icterus, no conjunctival injection ENT: mucous membranes moist, normal external ear exam Neck: normal inspection, trachea midline, full ROM, no carotid bruits Chest: normal inspection, symmetric chest rise Respiratory: Good respiratory effort. Bilateral breath sounds are clear without wheezing, crackles, or rhonchi. Cardiovascular: Regular rate and rhythm. s1 and s2 No clicks, rubs, gallops, or murmors. Abdomen: Bowel sounds present normoactive x-4 quadrants. Abdomen is soft, nondistended. no Epigastric tenderness. No guarding or rebound. No organomegaly noted musculoskeletal: Spontaneously moving all extremities. no edema, no calf tenderness Skin: warm, dry, intact. Neuro: Alert and oriented x3 no focal deficit Psych: Patient's affect is normal - Patient Status Disposition: Home, Self-Care Condition: Fair Functional capacity at discharge: independent ambulation Overall status at discharge: patient is back to baseline - Discharge Instructions Follow Up With: Melanie Barajas MD [Primary Care Provider] - - Diet and Activity Activity: increase activity as tolerated Diet: low fat, low cholesterol, low salt diet (cardiac )
== END 2018-09-21 14:53 | disposition home or self-care (01) ==
LOC: EMEROOARM 14:19 → 3BNU 14:19
PROVIDERS: ADMIT Internal Medicine Nephrology; ATTEND Internal Medicine Nephrology